=== PATIENT | female | born 1955 | race Caucasian/White ===

== ENCOUNTER 2019-07-14 10:21 | Outpatient (CLI) | payer MEDICARE, OTHER, SELFPAY ==
[2019-07-16 00:28] LABS: COVID-19 RT-PCR Result NEGATIVE (Negative)
== END 2019-07-14 10:41 ==
PROVIDERS: PCP Family Medicine; Visit Provider Family Medicine
DX: Z03.818 Encounter for observation for suspected exposure to other biological agents ruled out (principal)
CPT/HCPCS: U0003

== ENCOUNTER 2020-09-08 14:00 | Outpatient (CLI) | payer MEDICARE, SELFPAY ==
[2020-09-08 12:53] LABS: ALT 40 U/L (14-59); AST 18 U/L (15-37); Alkaline Phosphatase 63 U/L (46-116); Anion Gap 7.3 mmol/L (3-11); BUN 25 mg/dL (7-18); Bilirubin, Total 0.6 mg/dL (0.2-1.0); CO2 28.7 mmol/L (21.0-32.0); CREATININE 0.9 mg/dL (0.55-1.02); Calcium 9.3 mg/dL (8.5-10.1); Chloride 102 mmol/L (98-107); Creatine Kinase 103 U/L (26-192); Glucose 146 mg/dL (74-106); Potassium 4.8 mmol/L (3.5-5.1); Sodium 138 mmol/L (136-145)
[2020-09-09 21:53] LABS: Calculated LDL 159 mg/dL (<100); Cholesterol 238 mg/dL (<200); HDL Cholesterol 68 mg/dL (40-60); Triglyceride 58 mg/dL (<150)
== END 2020-09-08 14:01 | disposition home or self-care (01) ==
LOC: LOS 14:03
PROVIDERS: PCP Family Medicine; Visit Provider Family Medicine
DX: E78.00 Pure hypercholesterolemia, unspecified (principal); M79.673 Pain in unspecified foot
CPT/HCPCS: 36415; 80053; 80061; 82550

== ENCOUNTER 2022-09-28 09:47 | Outpatient (REF) | payer MEDICARE, SELFPAY ==
[2022-09-28 15:19] LABS: ALT 32 U/L (14-59); AST 17 U/L (15-37); Albumin 3.9 g/dL (3.4-5.0); Alkaline Phosphatase 62 U/L (46-116); BUN 24 mg/dL (7-18); Bilirubin, Total 0.5 mg/dL (0.2-1.0); CREATININE 0.9 mg/dL (0.55-1.02); Calcium 9.3 mg/dL (8.5-10.1); Calculated LDL 136 mg/dL (<100); Chloride 104 mmol/L (98-107); Cholesterol 217 mg/dL (<200); Estimated GFR 69.64 (mL/min/1.73m2); Glucose 150 mg/dL (74-106); HDL Cholesterol 68 mg/dL (40-60); Potassium 4.6 mmol/L (3.5-5.1); Sodium 142 mmol/L (136-145); Total Protein 6.9 g/dL (6.4-8.2); Triglyceride 69 mg/dL (<150)
[2022-09-28 15:41] LABS: Hemoglobin A1C 6.3 % (<5.7)
[2022-09-28 16:06] LABS: Vitamin D 25 Total 48.7 ng/mL (30-100)
== END 2022-09-28 09:48 | disposition home or self-care (01) ==
LOC: NCHCN 09:47
PROVIDERS: PCP Family Medicine; Visit Provider Family Medicine
DX: Z00.00 Encounter for general adult medical examination without abnormal findings (principal); E78.00 Pure hypercholesterolemia, unspecified
CPT/HCPCS: 80053; 80061; 82306; 83036

== ENCOUNTER 2022-11-02 11:05 | Outpatient (CLI) | payer MEDICARE, OTHER, SELFPAY ==
--- NOTE | 2022-11-02 10:00 | DI.RAD_ITS ---
Exam(s) XR KNEE RT 3V AP,LAT,ANA EXAM: XR KNEE RT 3V AP,LAT,ANA CLINICAL HISTORY: right knee pain. TECHNIQUE: 2D digital imaging was performed of the right knee. Three views obtained. AP, lateral an d PA tunnel views were obtained. COMPARISON: No exams were available for comparison FINDINGS: BONES: No acute fracture is present. Nonspecific tiny calcifications are seen within the medullary ca vity of the midshaft of the right tibia. No periosteal reaction or destructive changes are seen. Th ere are findings of a prior ACL repair. JOINTS: There is moderate narrowing of the medial femoral tibial joint. Periarticular spurring is se en in the medial femoral tibial and patellofemoral joints. There is a small joint effusion. SOFT TISSUE: Normal. IMPRESSION: Moderate degenerative changes of the right knee. DATA REPOSITORY: RADIATION DOSE DELIVERED:
== END 2022-11-02 11:06 | disposition home or self-care (01) ==
LOC: DIORS 11:05
PROVIDERS: PCP Family Medicine; Referring Provider Family Medicine; Visit Provider Physician Assistant
DX: M17.11 Unilateral primary osteoarthritis, right knee; M76.31 Iliotibial band syndrome, right leg; S83.511A Sprain of anterior cruciate ligament of right knee, initial encounter; X58.XXXA Exposure to other specified factors, initial encounter
CPT/HCPCS: 20610; 73562; 99203; J1040

== ENCOUNTER 2024-08-05 22:22 | Outpatient (REF) | payer MEDICARE, OTHER, SELFPAY | END 2024-08-05 22:23 | disposition home or self-care (01) | LOC: NCHCN 22:22 | PROVIDERS: PCP Family Medicine; Visit Provider Family Medicine | DX: R30.0 Dysuria (principal); B96.29 Other Escherichia coli [E. coli] as the cause of diseases classified elsewhere | CPT/HCPCS: 87077; 87086; 87186 ==